=== PATIENT | male | born 1970 | race Caucasian/White ===

== ENCOUNTER → 2018-03-23 | Outpatient (CLI) | payer OTHER | END | disposition home or self-care (01) | LOC: C.LAB 12:29 | PROVIDERS: ATTEND Orthopaedic Surgery | DX: M79.644 Pain in right finger(s) (principal) ==

== ENCOUNTER → 2018-03-26 | Outpatient (CLI) | payer OTHER ==
--- NOTE | 2018-03-30 17:02 | CODING QUERY NO DIAGNOSIS ---
TREATMENT RENDERED WITHOUT A DIAGNOSIS To promote full compliance with coding requirements relating to patient care, physician participation is requested in all cases of braille coder uncertainty. Please assist us with providing a diagnosis/symptom for the test(s) below: A diagnosis/symptom was not documented on your Order. A valid diagnosis/symptom is required to bill all insurances. Please remember that we are unable to code a diagnosis of rule out, probable, possible, questionable, or suspected. Tests that require a diagnosis: DOS: 03/26/18 (Order also missing physician's signature) * Anaerobic culture of right middle finger DIAGNOSIS: Provider Signature: Date: Thank you Melony Sewell [facility] Information Management Once completed, please kindly fax back to [phone] For questions please call [phone]
== END | disposition home or self-care (01) ==
LOC: C.LABSPEC 16:45
PROVIDERS: ATTEND Orthopaedic Surgery
DX: L08.9 Local infection of the skin and subcutaneous tissue, unspecified (principal)

== ENCOUNTER 2024-10-19 14:29 | Inpatient (IN) ==
--- NOTE | 2024-10-19 14:42 | Emergency Department Note ---
Impression & Plan Sepsis, Pneumonia, Hypoxia, Hyponatremia ED Provider Note NAME: ADALGISA RAINES AGE: 54 SEX: M : 1970 ARRIVES VIA: Ambulance INFORMANT: Patient ED PROVIDER(S): Ernst Son DO CHIEF COMPLAINT: Shortness of breath, fevers and vomiting HPI: Patient is a 54-year-old male who presents to the ER for cough and congestion which started 11 days ago. He notes this past he started having fevers. He admits to worsening shortness of breath. He was seen at [facility] twice and was referred in here. He has not been started on any antibiotics. He was given Tylenol. Admits to headache. Does have shortness of breath. No belly pain but has episode of vomiting. No dysuria, urgency, or frequency. No other exacerbating or remitting factors. ADDITIONAL HISTORY OBTAINED: Per HPI Chronic Medical/Social Conditions Affecting Care: Per HPI PAST MEDICAL HISTORY:See Below PAST SURGICAL HISTORY:See Below FAMILY HISTORY:See Below SOCIAL HISTORY:See Below HOME MEDICATIONS:See Below ALLERGIES:See Below VITALS:See Below PHYSICAL EXAMINATION: GENERAL: Sitting up in bed, alert, ill-appearing, disheveled, diaphoretic, with a cough EYE EXAM: normal conjunctiva. PERRL and EOM's grossly intact. OROPHARYNX: no exudate, no erythema, lips, buccal mucosa, and tongue normal and mucous membranes are moist NECK: supple, no nuchal rigidity, no adenopathy, non-tender LUNGS: Clear to auscultation. Normal chest wall mechanics HEART: no murmurs, S1 normal and S2 normal ABDOMEN: abdomen soft, non-tender, normo-active bowel sounds, no masses, no rebound or guarding. UPPER EXTREMITIES: upper extremities are grossly normal. LOWER EXTREMITIES: No pitting edema. NEURO EXAM: Normal sensorium, cranial nerves II-XII grossly intact, normal speech, no gross weakness of arms, no gross weakness of legs. MEDICAL DECISION MAKING: Patient is a 54-year-old male who was brought in by EMS. He was found to be hypoxic febrile and tachycardic. IV was established blood work was obtained. Labs show leukocytosis of 15,000. Mild anemia 12. BMP with hyponatremia at 122. LFTs and bilirubin was unremarkable. Troponin was negative. Pro-Sung was elevated. Bio fire was positive for human Carlotta pneumo virus. Chest x-ray confirms pneumonia. He was given IV Rocephin and oral azithromycin. He was given 2 L of IV fluids. He did appear to be significant dehydrated. He was discussed with the hospitalist admitted for further workup. Remained on 2 L nasal cannula while in the ER. Consults/Care Managements Discussions: Per [facility] Triage Nursing notes reviewed. Limited review of prior medical records performed Vital Signs: reviewed and remarkable for febrile and tacky Differential diagnosis: Differential diagnosis includes etiologies such as sepsis, UTI, pneumonia, metabolic, electrolyte abnormalities, cardiac sources, intracerebral event, toxicologic, neurological, as well as others were entertained. ER treatment provided: See below Diagnostics interpreted by me include EKG and cardiac monitoring as listed below: -Cardiac Monitoring: An order was placed for continuous cardiac monitoring. The monitor shows a rate of 98 with sinus rhythm. -ECG: Sinus rhythm rate of 98 Normal axis No PVCs QTc 464 -Laboratory studies:Interpreted by me as stated above in MDM and shown below. Imaging studies: Xrays: As interpreted by me: Portable AP upright 1 view of the chest shows left lower lobe infiltrate CTs show: none Procedures:none Critical Care: I have personally spent 32 minutes of critical care time in the direct management of this patient. This includes bedside care, interpretation of diagnostic studies, and testing, discussion with consultants, patient, and family members, and other required patient management activities. This 32 minutes is in excess of all separately billable procedures. Past Med/Surg History Problem List (Updated 10/19/24 @ 21:35 by Ernst Son DO) Hypoxia (Acute) Pulmonary mass Type 2 diabetes mellitus Hypertension Hypokalemia Hyponatremia (Acute) Pneumonia (Acute) Sepsis (Acute) Social History Smoking Status: Never smoker Hx Alcohol Use: No Hx Substance Use: No Preferred Language: Guyanese Communication Ability: Effective Jail Keeper Required: No Beliefs That Will Affect Care: None Current Living Situation: Alone Other Information That Helps Us Care for You: No Feels Safe at Home: Yes Safety Concerns: Feels Safe At This Time Assistive Devices: Contacts Allergies Allergies Allergy/AdvReac Type Severity Reaction Status Date / Time No Known Allergies Allergy Unverified 10/19/24 17:37 Home Meds Home Medications Medication Instructions Recorded Confirmed atorvastatin 20 mg tablet 20 mg PO HS 10/19/24 10/19/24 dulaglutide 0.75 mg/0.5 mL 0.75 mg subcut WK 10/19/24 10/19/24 subcutaneous pen injector (Trulicity) glipizide 10 mg tablet, extended 10 mg PO QAM 10/19/24 10/19/24 release 24 hr ibuprofen 200 mg tablet 400 mg PO Q6H PRN Pain 10/19/24 10/19/24 lisinopril 40 mg tablet 40 mg PO QAM 10/19/24 10/19/24 metformin 500 mg tablet,extended 1,000 mg PO QAM 10/19/24 10/19/24 release 24 hr multivitamin 1 tab PO QAM 10/19/24 10/19/24 venlafaxine 150 mg 150 mg PO HS 10/19/24 10/19/24 capsule,extended release 24 hr Results & Data (ED) Vital Signs Vital Signs - 24 hr 10/19/24 14:39 10/19/24 14:51 10/19/24 14:57 Temperature 38.1 C H Temperature Source Oral Pulse Rate 99 H 94 H Pulse Rate [Apical] 94 H Pulse Rate from SpO2 Sensor Pulse Rhythm [Apical] Pulse Strength [Apical] Respiratory Rate 18 21 Respiratory Effort / Characteristics Non-Labored Spontaneous Respiratory Depth Normal Respiratory Pattern Blood Pressure 161/94 H Blood Pressure [Right Arm] 161/94 H Blood Pressure Mean 116 Blood Pressure Mean [Right Arm] 116 Pulse Oximetry 93 91 Oxygen Delivery Method Room Air Room Air Oxygen Flow Rate Sepsis Recent Fever Within 48 Hours Yes Sepsis New/Unexplained Change in Mental Status N/A Sepsis Action Taken by Nursing No Action Required 10/19/24 14:57 10/19/24 15:00 10/19/24 15:36 Temperature 37.3 C Temperature Source Oral Pulse Rate 93 H Pulse Rate [Apical] 89 Pulse Rate from SpO2 Sensor Pulse Rhythm [Apical] Regular Pulse Strength [Apical] Normal Respiratory Rate 21 16 Respiratory Effort / Characteristics Non-Labored Spontaneous Respiratory Depth Normal Respiratory Pattern Regular Blood Pressure Blood Pressure [Right Arm] 140/69 Blood Pressure Mean Blood Pressure Mean [Right Arm] 92 Pulse Oximetry 90 89 L 92 Oxygen Delivery Method Room Air Room Air Room Air Oxygen Flow Rate 0 Sepsis Recent Fever Within 48 Hours Sepsis New/Unexplained Change in Mental Status Sepsis Action Taken by Nursing 10/19/24 15:36 10/19/24 15:37 10/19/24 16:15 Temperature Temperature Source Pulse Rate 86 86 Pulse Rate [Apical] Pulse Rate from SpO2 Sensor 89 Pulse Rhythm [Apical] Pulse Strength [Apical] Respiratory Rate 24 20 Respiratory Effort / Characteristics Respiratory Depth Respiratory Pattern Blood Pressure 140/69 129/70 Blood Pressure [Right Arm] Blood Pressure Mean 98 89 Blood Pressure Mean [Right Arm] Pulse Oximetry 88 L 95 97 Oxygen Delivery Method Nasal Cannula Nasal Cannula Oxygen Flow Rate 2 2 Sepsis Recent Fever Within 48 Hours Sepsis New/Unexplained Change in Mental Status Sepsis Action Taken by Nursing Laboratory Data 10/19/24 14:45 10/19/24 17:18 Lab Results 10/19/24 10/19/24 10/19/24 Range/Units 14:45 15:10 15:44 WBC 15.77 H (4.8-10.8) K/ul RBC 4.15 L (4.70-6.10) M/uL Hgb 12.2 L (14.0-18.0) g/dl Hct 34.9 L (42.0-52.0) % MCV 84.1 (80.0-100.0) fL MCH 29.4 (25.0-34.0) pg MCHC 35.0 (32.0-36.0) g/dL RDW Std Deviation 39.4 (36.4-46.3) fL RDW Coeff of Trini 12.9 (11.5-14.5) % Plt Count 228 (130-400) K/uL MPV 9.1 L (9.4-12.4) fL Immature Gran % (Auto) 0.8 % Neut % (Auto) 86.8 % Lymph % (Auto) 5.5 % [place] % (Auto) 6.7 % Eos % (Auto) 0.0 % Baso % (Auto) 0.2 % Neut # (Auto) 13.70 H (1.40-6.50) K/uL Lymph # (Auto) 0.86 L (1.20-3.40) K/uL [place] # (Auto) 1.06 H (0.11-0.59) K/uL Eos # (Auto) 0.00 (0.00-0.50) K/uL Baso # (Auto) 0.03 (0.00-0.20) K/uL Immature Gran # (Auto) 0.12 (0.01-0.20) K/uL Sodium 122 L (136-145) mmol/L Potassium 3.3 L (3.5-5.1) mmol/L Chloride 89 L (98-107) mmol/L Carbon Dioxide 23 (21-32) mmol/L Anion Gap 10 (3-11) BUN 12 (6-23) mg/dl Creatinine 0.77 (0.6-1.4) mg/dl Est Cr Clr Drug Dosing 142.8 ml/min eGFR 105.07 BUN/Creatinine Ratio 15.6 (10-20) Glucose 195 H (70-99(Fasting)) mg/dl Lactate 1.3 (0.4-2.0) mmol/L Calcium 8.6 (8.6-10.3) mg/dl Total Bilirubin 1.2 H (0.2-1.0) mg/dl AST 18 (13-39) U/L ALT 13 (7-52) U/L Alkaline Phosphatase 96 (34-104) U/L Troponin I High Sens 11.5 (0-20) pg/ml Total Protein 7.8 (6.0-8.3) gm/dl Albumin 3.6 (3.4-5.0) gm/dl Globulin 4.2 H (2.5-4.0) gm/dl Albumin/Globulin Ratio 0.9 (0.9-2) Lipase 21 (11-82) U/L Procalcitonin 0.70 H (0-0.5) ng/ml Adenovirus (PCR) Not Detected (NotDetected) B. pertussis DNA (PCR) Not Detected (NotDetected) B.parapertussis DNA PCR Not Detected (NotDetected) C. pneumoniae DNA (PCR) Not Detected (NotDetected) Coronavirus OC43 (PCR) Not Detected (NotDetected) Coronavirus HKU1 (PCR) Not Detected (NotDetected) Coronavirus 229E (PCR) Not Detected (NotDetected) SARS-CoV-2 (PCR) Not Detected (NotDetected) Coronavirus NL63 (PCR) Not Detected (NotDetected) Human Metapneumovir PCR DETECTED A (NotDetected) Influenza Type A (PCR) Not Detected (NotDetected) Influenza Type B (PCR) Not Detected (NotDetected) M. pneumoniae (PCR) Not Detected (NotDetected) Parainfluenza 1 (PCR) Not Detected (NotDetected) Parainfluenza 2 (PCR) Not Detected (NotDetected) Parainfluenza 3 (PCR) Not Detected (NotDetected) Parainfluenza 4 (PCR) Not Detected (NotDetected) RSV (PCR) Not Detected (NotDetected) Entero/Rhino (PCR) Not Detected (NotDetected) Administered Medications Atorvastatin Calcium (Atorvastatin 20 Mg Tab) 20 mg PO HS QUYEN Stop: 11/18/24 20:59 Last Admin: 10/19/24 20:10 Dose: 20 mg Documented By: LMP Enoxaparin Sodium (Enoxaparin Inj 40 Mg/0.4 Ml Syr) 40 mg SQ Q24H QUYEN Stop: 11/18/24 18:59 Last Admin: 10/19/24 20:11 Dose: Not Given Documented By: RYLEY Insulin Aspart (Insulin Aspart Per Unit Charge) 0 units SC ACHS QUYEN Stop: 11/18/24 18:44 Last Admin: 10/19/24 20:50 Dose: 3 units Documented By: RYLEY Co-signed By: KARTHIK Admin: 10/19/24 19:20 Dose: Not Given Documented By: MP Co-signed By: RYLEY Magnesium Oxide (Magnesium Oxide 400 Mg Tab) 400 mg PO QAM QUYEN Stop: 11/18/24 19:14 Last Admin: 10/19/24 20:10 Dose: 400 mg Documented By: RYLEY Venlafaxine HCl (Venlafaxine Hcl Xr 150 Mg Capxr) 150 mg PO HS QUYEN Stop: 11/18/24 20:59 Last Admin: 10/19/24 20:10 Dose: 150 mg Documented By: LMP Discontinued Medications Azithromycin (Azithromycin 250 Mg Tab) 500 mg PO NOW ONE Stop: 10/19/24 14:39 Last Admin: 10/19/24 15:45 Dose: 500 mg Documented By: PRACHI Sodium Chloride (Nss) 1,000 mls @ 999 mls/hr IV .Q1H1M QUYEN Stop: 10/19/24 16:45 Last Infusion: 10/19/24 19:57 Dose: Infused Documented By: Admin: 10/19/24 17:04 Dose: 999 mls/hr Documented By: [facility] Infusion: 10/19/24 16:51 Dose: Infused Documented By: [facility] Admin: 10/19/24 15:45 Dose: 999 mls/hr Documented By: [facility] Ceftriaxone Sodium (Rocephin) 2,000 mg in 50 mls @ 100 mls/hr IV NOW STA Stop: 10/19/24 15:07 Last Infusion: 10/19/24 16:37 Dose: Infused Documented By: [facility] Admin: 10/19/24 15:38 Dose: 100 mls/hr Documented By: [facility] Ioversol (Optiray 320 100ml) 90 ml IV ONCE ONE Stop: 10/19/24 18:06 Last Admin: 10/19/24 18:06 Dose: 90 ml Documented By: [place] Potassium Chloride (Potassium Chloride Crtab 20 Meq Tabcr) 40 meq PO Q2H QUYEN Stop: 10/19/24 20:44 Last Admin: 10/19/24 20:10 Dose: 40 meq Documented By: [facility] Admin: 10/19/24 17:04 Dose: 40 meq Documented By: [facility] Imaging Data Radiologist's Impression: Chest X-Ray 10/19/24 14:34 XR chest 1V portable HISTORY: 54 years-old Male Chest pain, nonspecific COMPARISON: None TECHNIQUE: AP view of the chest FINDINGS: Cardiac silhouette is enlarged. Sigmoid thoracolumbar scoliosis with spinal fusion shar. No pneumothorax, pleural effusion or overt pulmonary edema. There is an ill-defined 9 cm retrocardiac masslike opacity. IMPRESSION: Ill-defined 9 mm retrocardiac masslike opacity. Differential considerations include pneumonia versus bronchogenic malignancy. Correlation with CT of the chest recommended. ACT 112: Negative or not required by law. The above report was generated using voice recognition software. It may contain grammatical, syntax or spelling errors. Electronically signed by: Silvestre Childers M.D. 10/19/2024 3:07 PM Discharge Plan Visit Data Chief Complaint: Shortness of Breath/Dyspnea ED Provider: Ernst Son Discharge Problem: Sepsis, Pneumonia, Hypoxia, Hyponatremia Patient Disposition: Admitted As Inpatient Discharge Instructions Interventions: ED Discharge Assessment Last Done: 10/19/24 17:45 Discharge Problem: Sepsis Qualifiers: Sepsis type: sepsis due to unspecified organism Sepsis acute organ dysfunction status: unspecified Qualified Code(s): A41.9 - Sepsis, unspecified organism
[2024-10-19 15:02] LABS: Basophils # (auto) 0.03 K/uL (0.00-0.20); Basophils % (auto) 0.2 %; Hematocrit (blood only) 34.9 % (42.0-52.0); Hemoglobin 12.2 g/dl (14.0-18.0); Immature Granulocytes # (auto) 0.12 K/uL (0.01-0.20); Immature Granulocytes % (auto) 0.8 %; Lymphocytes # (auto) 0.86 K/uL (1.20-3.40); Lymphocytes % (auto) 5.5 %; Mean Corpuscular Hemoglobin 29.4 pg (25.0-34.0); Mean Corpuscular Volume 84.1 fL (80.0-100.0); Mean Platelet Volume 9.1 fL (9.4-12.4); Monocytes # (auto) 1.06 K/uL (0.11-0.59); Monocytes % (auto) 6.7 %; Neutrophils % (auto) 86.8 %; Platelet Count 228 K/uL (130-400); RDW Coefficient of Variation 12.9 % (11.5-14.5); RDW Standard Deviation 39.4 fL (36.4-46.3); Red Blood Count 4.15 M/uL (4.70-6.10); White Blood Count 15.77 K/ul (4.8-10.8)
--- NOTE | 2024-10-19 15:09 | XRay Report ---
XR chest 1V portable HISTORY: 54 years-old Male Chest pain, nonspecific COMPARISON: None TECHNIQUE: AP view of the chest FINDINGS: Cardiac silhouette is enlarged. Sigmoid thoracolumbar scoliosis with spinal fusion shar. No pneumothor ax, pleural effusion or overt pulmonary edema. There is an ill-defined 9 cm retrocardiac masslike opa city. IMPRESSION: Ill-defined 9 mm retrocardiac masslike opacity. Differential considerations include pneum onia versus bronchogenic malignancy. Correlation with CT of the chest recommended. ACT 112: Negative or not required by law. The above report was generated using voice recognition software. It may contain grammatical, syntax o r spelling errors. Electronically signed by: Silvestre Childers M.D. 10/19/2024 3:07 PM
[2024-10-19 15:34] LABS: Albumin Globulin Ratio 0.9 (0.9-2); Albumin Level 3.6 gm/dl (3.4-5.0); BUN Creatinine Ratio 15.6 (10-20); Bilirubin,Total 1.2 mg/dl (0.2-1.0); Calcium 8.6 mg/dl (8.6-10.3); Creatinine Clr Calc Pharmacy 142.8 ml/min; Globulin 4.2 gm/dl (2.5-4.0); Potassium 3.3 mmol/L (3.5-5.1); Total Protein 7.8 gm/dl (6.0-8.3); Troponin I High Sensitivity 11.5 pg/ml (0-20)
[2024-10-19] MEDS: cefTRIAXone SODIUM 2,000 MG/50 ML BAG IV STA (15:38)
--- NOTE | 2024-10-19 15:42 | History & Physical Report ---
Date of Service October 19, 2024 Assessment & Plan (1) Sepsis: Plan: Source: pneumonia WBC 15.77, tachycardic 99, febrile (38.1C) lactate negative, 1.3 Procal 0.70 Fluids: - 2L NSS in ER - Sepsis fluid calculation for ideal body weight = 2754.30 Will defer additional fluid resuscitation given hyponatremia and critical IV shortage - defer trending lactate given 1.3 - Biofire pending - chest CT ordered - Continue Rocephin and Azithromycin - Blood cultures ordered (2) Pneumonia: Plan: history of cough, dyspnea on exertion, fever, fatigue x 1.5 weeks CXR showing ill-defined 9 mm retrocardiac masslike opacity pneumonia versus bronchogenic malignancy hypoxia - 89% RA -> NC 2L incentive spirometry CT chest with contrast ordered sepsis workup as above (3) Hypoxia: Plan: secondary to pneumonia On 2L NC on admission wean oxygen as tolerated treatment for above (4) Hyponatremia: Plan: Patient with NA of 122 -> Calculated corrected 124 with mild hyperglycemia likely secondary to recent poor oral intake/ dehydration; although SIADH from pneumonia in differential - asymptomatic - hypovolemic; clinically - Serum osmol, Urine NA, Urine Osmol pending - repeat BMP after IV fluid resuscitation from ER - Trend BMP Q4 hours overnight (5) Hypokalemia: Plan: 3.3 on admission -> 80 Meq PO ordered trend BMP and Mg Hypomagnesia - 1.7 -> start daily supplement (6) Hypertension: Plan: Stable, not hypotensive given sepsis - continue home BP medications - lisinopril - monitor with fluid bolus as above (7) Type 2 diabetes mellitus: Plan: Controlled on metformin, glipizide, Trulicity at home; held - No recent A1c on file although followed with PCP - SSI with target BSG range 110-140mg/dL, CF 25, carb ratio 12 - T2DM diet - BSG ACHS if eating, q6h if npo (8) Pulmonary mass: Plan: CXR on admission showed ill-defined 9 mm retrocardiac masslike opacity differential includes pneumonia vs bronchogenic malignancy patient does have 10-year tobacco history, chews, but non-smoker - CT chest ordered Plan Chronic stable diagnoses: HLD - continue atorvastatin depression/anxiet - continue venlafaxine VTE ppx: Lovenox 40mg Q24h Diet: T2DM diet Code status: DNR/DNI Dispo: PCU/tele given sepsis Admission and Anticipated Discharge Date Admission Date: 10/19/24 History of Present Illness Chief Complaint: dyspnea Primary Care Provider: Hanane Soto Patient is a 54-year-old male with past medical history of hypertension, hyperlipidemia, type 2 diabetes, BPH, depression/anxiety. He presents today with an ongoing cough that has been present for 1.5 weeks, nonproductive. He stated his entire body hurts when he coughs. He also has dyspnea on exertion along with a subjective fever and chills. He had 1 episode of vomiting this morning due to nausea. He has not eaten anything since yesterday just because of generalized weakness and fatigue. He went to, they obtained a CXR which showed LLL pneumonia; he has not started any outpatient antibiotics yet. He presented to the ED today with hypoxia, 98% on room air. He endorses mild dizziness. Endorses chest pain and abdominal pain, relates it to musculoskeletal pain from coughing. Patient denies sputum production, diarrhea, constipation, dysuria, hematuria, edema, numbness, tingling. He has a 10-year history of drinking, no smoking history. He lives at home by himself, support system. He has DNR/DNI status. He took his home medications this morning. Patient reassessed at 1918 - perfusing well, on RA. Fatigued, denies dyspnea. No need for repeat lactate at this time given original was <2. Allergies Allergy/AdvReac Type Severity Reaction Status Date / Time No Known Allergies Allergy Unverified 10/19/24 17:37 Home Medications Medication Instructions Recorded Confirmed Type atorvastatin 20 mg tablet 20 mg PO HS 10/19/24 10/19/24 History dulaglutide 0.75 mg/0.5 mL 0.75 mg subcut WK 10/19/24 10/19/24 History subcutaneous pen injector (Trulicity) glipizide 10 mg tablet, extended 10 mg PO QAM 10/19/24 10/19/24 History release 24 hr ibuprofen 200 mg tablet 400 mg PO Q6H PRN Pain 10/19/24 10/19/24 History lisinopril 40 mg tablet 40 mg PO QAM 10/19/24 10/19/24 History metformin 500 mg tablet,extended 1,000 mg PO QAM 10/19/24 10/19/24 History release 24 hr multivitamin 1 tab PO QAM 10/19/24 10/19/24 History venlafaxine 150 mg 150 mg PO HS 10/19/24 10/19/24 History capsule,extended release 24 hr Past Med/Surg History Problem List (Updated 10/19/24 @ 16:16 by Sada Salas PA-C) Hypoxia Pulmonary mass Type 2 diabetes mellitus Hypertension Hypokalemia Hyponatremia Pneumonia Sepsis Social History Smoking Status: Never smoker Hx Alcohol Use: No Hx Substance Use: No Preferred Language: Cymraes Communication Ability: Effective Finance Clerk Required: No Beliefs That Will Affect Care: None Current Living Situation: Alone Feels Safe at Home: Yes Assistive Devices: Contacts Review of Systems Review of Systems: see HPI Physical Exam Physical Exam: The patient is awake, alert and oriented 3, well developed and well nourished, normocephalic and atraumatic, in no acute distress. Non-toxic appearing. HEENT- EOMI, mucous membranes dry. Hearing grossly intact. Heart-normal S1 and S2. No murmurs, rubs or gallops. Lungs-clear bilaterally, no respiratory distress, no accessory muscle use. 2L via Nasal cannula. Abdomen-normal bowel sounds and soft. No ascites noted. Non-tender. Scar to RUQ, patient stated from childhood. Extremities- no clubbing, cyanosis, or edema. Rheumatologic-normal range of motion. Psychiatric-normal affect. Results & Data Results & Data Vital Signs (Past 12 Hours) Vital Signs Temp Pulse Pulse Resp BP BP Pulse Ox 10/19/24 15:36 37.3 C 89 16 140/69 92 10/19/24 15:00 89 L 10/19/24 14:57 93 H 21 90 10/19/24 14:57 94 H 21 161/94 H 91 10/19/24 14:51 94 H 10/19/24 14:39 38.1 C H 99 H 18 161/94 H 93 O2 Del Method O2 Flow Rate 10/19/24 15:36 Room Air 10/19/24 15:00 Room Air 0 10/19/24 14:57 Room Air 10/19/24 14:57 Room Air 10/19/24 14:51 10/19/24 14:39 Room Air Code Status & VTE Plan Code Status DNR/DNI VTE Prophylaxis Plan VTE Prophylaxis will be ordered: Yes Supervising Physician Co-Signing Physician Notes Patient seen and examined, chart reviewed, case discussed with Sada Salas PA-C and I agree with the assessment and plan as above except as otherwise noted Labs and images reviewed 54-year-old male with a past medical history of DM, anxiety/depression, hypertension who presents with suspected community-acquired pneumonia and to meet sepsis criteria due to leukocytosis and tachycardia. He is hyponatremic which is suspected to be from solute depletion due to poor p.o. intake for several days however differential does include SIADH. Additionally patient has a retrocardiac mass seen for which a CT has been ordered for further characterization 2L of crystalloid resuscitation given in the ER. 30 cc/kg IBW recommendations 2754 deferred as patient is normotensive, is no longer tachycardic, lactate is normal, and patient is seen during a period of critical IV fluid shortage. Orals encouraged and he is clinically improving on reassessment. Additionally he is hyponatremic and urine studies are pending so risk of SIADH with pneumonia is present, although clinically patient does appear contracted on initial assessment. Rocephin/Azithromycin continued. Retrocardiac opacity is seen, CT chest is pending for further evaluation. Agree w/ management above PG Care Time/CCT Total # of Minutes Spent Total Time Spent with Patient: Total time spent is greater than 50% in coordination of care (as documented) at patient's floor/unit and/or counseling patient: Coding Level of Care Code 84893 INT INP/OBS CARE 3/75MIN Diagnoses Sepsis A41.9 Pneumonia J18.9 Hypoxia R09.02 Hyponatremia E87.1 Hypokalemia E87.6 Hypertension I10 Type 2 diabetes mellitus E11.9 Pulmonary mass R91.8
[2024-10-19] MEDS: AZITHROMYCIN 250 MG TAB PO ONE (15:45)
[2024-10-19] MEDS: SODIUM CHLORIDE 0.9% 1,000 ML IV SCH (15:45)
[2024-10-19 16:50] LABS: Adenovirus PCR Not Detected (NotDetected); Bordetella parapertussis PCR Not Detected (NotDetected); Bordetella pertussis PCR Not Detected (NotDetected); Chlamydia pneumoniae PCR Not Detected (NotDetected); Coronavirus 229E PCR Not Detected (NotDetected); Coronavirus CoV-2 (COVID19)PCR Not Detected (NotDetected); Coronavirus HKU1 PCR Not Detected (NotDetected); Coronavirus NL63 PCR Not Detected (NotDetected); Coronavirus OC43PCR Not Detected (NotDetected); Human Metapneumovirus PCR DETECTED (NotDetected); Influenza A PCR Not Detected (NotDetected); Influenza B PCR Not Detected (NotDetected); Mycoplasma pneumoniae PCR Not Detected (NotDetected); Parainfluenza Virus 1 PCR Not Detected (NotDetected); Parainfluenza Virus 2 PCR Not Detected (NotDetected); Parainfluenza Virus 3 PCR Not Detected (NotDetected); Parainfluenza Virus 4 PCR Not Detected (NotDetected); Respiratory Syncytial VirusPCR Not Detected (NotDetected); Rhinovirus/Enterovirus PCR Not Detected (NotDetected)
[2024-10-19] MEDS: POTASSIUM CHLORIDE CRTAB 20 MEQ TABCR PO SCH (17:04)
[2024-10-19 17:59] LABS: Calcium 8.7 mg/dl (8.6-10.3); Potassium 3.6 mmol/L (3.5-5.1)
[2024-10-19 18:05] LABS: BUN Creatinine Ratio 14.8 (10-20); Creatinine Clr Calc Pharmacy 135.7 ml/min
[2024-10-19] MEDS: OPTIRAY 320 100ml IV ONE (18:06)
[2024-10-19] MEDS ORDERED: ONDANSETRON INJ 2 MG/ML 2 ML VIAL IV PRN (18:26)
[2024-10-19] MEDS ORDERED: GLUCOSE 10 TAB/TUBE PO PRN (18:26)
[2024-10-19] MEDS ORDERED: DEXTROSE 50% 50 ML SYRINGE IV PRN (18:26)
[2024-10-19] MEDS ORDERED: GLUCOSE 40% GEL 15 GM TUBE PO PRN (18:26)
[2024-10-19] MEDS ORDERED: CARBOHYDRATES FOR HYPOGLYCEMIA PO PRN (18:26)
[2024-10-19] MEDS ORDERED: DOCUSATE SODIUM 100 MG CAP PO PRN (18:26)
[2024-10-19] MEDS ORDERED: GLUCAGON FOR INJ 1 MG VIAL SQ PRN (18:26)
--- NOTE | 2024-10-19 18:30 | CT Scan Report ---
HISTORY: Left lower lobe pneumonia. Shortness of breath. TECHNIQUE: Helical CT imaging of the chest was performed following uneventful administration of 90 cc of Optiray 320 IV contrast. Images are presented in axial, sagittal, and coronal reformats. COMPARISON: None FINDINGS: Multifocal bilateral airspace opacity consistent with multifocal pneumonia. This is most pronounced involving the left upper lobe with areas also present within the right upper lobe and right lower lobe. No pneumothorax or significant pleural effusion. The central tracheobronchial tree is patent. Normal heart size. Coronary artery calcifications are present. No pericardial effusion. Mildly enlarged mediastinal and hilar lymph nodes are nonspecific, but likely reactive. Small hiatal hernia. Thoracic esophagus is unremarkable. Thyroid gland is unremarkable. No enlarged axillary or subpectoral lymph nodes. The soft tissues of the chest wall are unremarkable. Hepatic steatosis. The included upper abdomen is otherwise unremarkable. Veronica shar is noted in the thoracic spine. Severe dextroscoliosis. No acute osseous abnormality. IMPRESSION: Multifocal bilateral pneumonia, which is pronounced involving the left lower lobe. Follow-up chest CT is recommended in 1 to 2 months to ensure complete resolution. Nonspecific mild mediastinal and hilar lymphadenopathy is likely reactive. Coronary artery calcifications. Hepatic steatosis. Electronically signed by Jeanmarie Chavira 10-19-2024 6:30 PM
[2024-10-19] MEDS: INSULIN ASPART PER UNIT CHARGE SC SCH (19:20)
[2024-10-19] MEDS: ATORVASTATIN 20 MG TAB PO SCH (20:10)
[2024-10-19] MEDS: VENLAFAXINE HCL XR 150 MG CAPXR PO SCH (20:10)
[2024-10-19] MEDS: MAGNESIUM OXIDE 400 MG TAB PO SCH (20:10)
[2024-10-19] MEDS: ENOXAPARIN INJ 40 MG/0.4 ML SYR SQ SCH (20:11)
--- NOTE | 2024-10-19 21:25 | Electrocardiogram Report ---
Test Reason : Blood Pressure : */* mmHG Vent. Rate : 98 BPM Atrial Rate : 98 BPM P-R Int : 202 ms QRS Dur : 102 ms QT Int : 364 ms P-R-T Axes : 62 22 61 degrees QTcB Int : 464 ms Normal sinus rhythm Possible Left atrial enlargement Borderline ECG No previous ECGs available Confirmed by Justen Curtis ([id number]) on 10/19/2024 9:25:06 PM Referred By: Confirmed By: Justen Curtis
[2024-10-19 21:38] LABS: BUN Creatinine Ratio 14.8 (10-20); Calcium 8.9 mg/dl (8.6-10.3); Creatinine Clr Calc Pharmacy 124.7 ml/min; Potassium 3.9 mmol/L (3.5-5.1)
[2024-10-19] MEDS: ACETAMINOPHEN 325 MG TAB PO PRN (23:10)
[2024-10-19] MEDS: NICOTINE 21 MG/24 HR TDSY TD SCH (23:40)
[2024-10-20 01:15] LABS: BUN Creatinine Ratio 16.3 (10-20); Calcium 8.8 mg/dl (8.6-10.3); Creatinine Clr Calc Pharmacy 127.6 ml/min; Potassium 3.7 mmol/L (3.5-5.1)
[2024-10-20 04:30] LABS: A calco-baum cmplx NotReported Not Detected (NotDetected); Bact fragilis Not Reported Not Detected (NotDetected); Blood Culture Id Panel See PCR Comment (NotDetected); C auris Not Reported Not Detected (NotDetected); Calbicans Not Reported Not Detected (NotDetected); Candida glabrata Not Reported Not Detected (NotDetected); Candida krusei Not Reported Not Detected (NotDetected); Cneoformans/gatti Not Reported Not Detected (NotDetected); Cparapsilosis Not Reported Not Detected (NotDetected); E cloacae compx Not Reported Not Detected (NotDetected); Efaecalis Not Reported Not Detected (NotDetected); Efaecium Not Reported Not Detected (NotDetected); Enterobacterales Not Reported Not Detected (NotDetected); Escherichia coli Not Reported Not Detected (NotDetected); H influenzae Not Reported Not Detected (NotDetected); K aerogenes Not Reported Not Detected (NotDetected); Koxytoca Not Reported Not Detected (NotDetected); Kpneumoniae grp Not Reported Not Detected (NotDetected); Lmonocyt Not Reported Not Detected (NotDetected); N meningitidis Not Reported Not Detected (NotDetected); P aeruginosa Not Reported Not Detected (NotDetected); Proteus spp Not Reported Not Detected (NotDetected); Salmonella spp Not Reported Not Detected (NotDetected); Staph lugdunensis Not Reported Not Detected (NotDetected); Staph spp. Not Reported Not Detected (NotDetected); Staphaureus Not Reported Not Detected (NotDetected); Staphepi Not Reported Not Detected (NotDetected); Stenmaltophilia Not Reported Not Detected (NotDetected); Strep agal(GrpB) Not Reported Not Detected (NotDetected); Strep pneum Not Reported DETECTED (NotDetected); Strep pyog (GrpA) Not Reported Not Detected (NotDetected); Strep spp Not Reported DETECTED (NotDetected); Streptococcus spp DETECTED (NotDetected)
[2024-10-20 05:05] LABS: Streptococcus pneumoniae DETECTED (NotDetected)
[2024-10-20 08:07] LABS: Hematocrit (blood only) 37.3 % (42.0-52.0); Hemoglobin 12.4 g/dl (14.0-18.0); Mean Corpuscular Hemoglobin 28.8 pg (25.0-34.0); Mean Corpuscular Hgb Conc 33.2 g/dL (32.0-36.0); Mean Corpuscular Volume 86.7 fL (80.0-100.0); Mean Platelet Volume 9.5 fL (9.4-12.4); Platelet Count 231 K/uL (130-400); RDW Standard Deviation 40.7 fL (36.4-46.3); White Blood Count 11.96 K/ul (4.8-10.8)
[2024-10-20 08:29] LABS: BUN Creatinine Ratio 15.1 (10-20); Calcium 8.9 mg/dl (8.6-10.3); Creatinine Clr Calc Pharmacy 117.8 ml/min; Magnesium 2.1 mg/dl (1.7-2.4); Potassium 4.3 mmol/L (3.5-5.1)
[2024-10-20] MEDS ORDERED: PNEUMOCOCCAL VACCINE (PCV20) 20-VAL CONJ-DIP CRM/PF 0.5 ML SYR IM ONE (09:00)
[2024-10-20] MEDS ORDERED: NICOTINE 21 MG/24 HR TDSY TD SCH (09:00)
[2024-10-20] MEDS: AZITHROMYCIN 250 MG TAB PO SCH (09:18)
[2024-10-20] MEDS: lisinopril 40 MG TAB PO SCH (09:18)
--- NOTE | 2024-10-20 13:20 | Hospitalist Progress Note ---
Date of Service October 20, 2024 Assessment & Plan (1) Sepsis: Plan: with bacteremia source - pneumonia see below (2) Bacteremia: Plan: 2nd to strep pneumoniae all blood cx's from admission are positive echo ordered - r/o SBE continue rocephin 2gm IV daily will need 14 days of Rx in light of immunocompromised status - diabetic, had meningitis in his 20s, etc - will obtain blood cultures to ensure sterility fortunately he remains hemodynamically stable (3) Pneumonia: Plan: CT chest with b/l infiltrates some of the pneumonia could be 2nd human metapneumovirus some of the pneumonia likely 2nd to bacterial superinfection with strep cont rocephin cont azithromycin stable in room air today (4) Hypoxia: Plan: secondary to pneumonia o2 already weaned off (5) Hyponatremia: Plan: 2nd hypovolemia from poor PO intake prior to admission presenting Na 122 today's Na - 135 repeat BMP am for stability (6) Hypokalemia: Plan: replaced resolved (7) Hypertension: Plan: stable, controlled cont LORRAINE (8) Type 2 diabetes mellitus: Plan: Typically on metformin, glipizide, Trulicity at home; all Currently on novolog SSI Check a1c in am Add basal if needed (9) Pulmonary mass: Plan: CXR on admission showed ill-defined 9 mm retro[address]iac masslike opacity CT chest w/o discrete mass --> the CXR finding could be due to the dense EBEN consolidation regardless will need repeat CT in 2-3 months (10) Bronchitis due to human metapneumovirus (hMPV): Plan: extensive wheezing on exam today he does report history of asthma as child/teenager consider systemic steroids for now will add pulmicort nebs BID also add brovana BID incentive brock add flutter add tessalon add robitussin AC prn droplet precautions Plan Chronic stable diagnoses: HLD - continue atorvastatin depression/anxiet - continue venlafaxine DVT proph - Lovenox 40mg Q24h Admission and Anticipated Discharge Date Admission Date: October 19, 2024 Subjective tele wnl overnight reports ongoing cough, wheezing, congestion no dyspnea at rest but some dyspnea with exertion feels better overall vs yesterday a little more energy eating well reports h/o asthma as a child also reports meningitis in his 20s Review of Systems Review of Systems: gen - no fevers or chills cv - no chest pain pulm - cough is dry and hacking GI - no abd pain or N/V Physical Exam Physical Exam: gen - lying comfortably in bed, NAD, coughing HENT - congested; MMM neck - no JVD heart - RRR, s1 s2, no murmur lungs - diffuse wheezing all lung segments; crackles left lung; airation fair; no increased work of breathing abd - soft NT ND BS+ ext - no edema, pulses 2+b/l psych - a/o x 3 Results & Data Results & Data Vital Signs (Past 12 Hours) Vital Signs Temp Pulse Resp BP Pulse Ox O2 Del Method 10/20/24 11:00 36.7 C 85 16 138/90 96 Room Air 10/20/24 08:00 Room Air 10/20/24 08:00 37.1 C 10/20/24 07:33 94 H 20 136/83 95 Room Air 10/20/24 03:50 37.3 C 76 22 141/80 H 92 Room Air Laboratory Results Laboratory Results - last 24 hr 10/19/24 10/20/24 10/20/24 15:10 07:30 07:31 WBC 11.96 H RBC 4.30 L Hgb 12.4 L Hct 37.3 L MCV 86.7 MCH 28.8 MCHC 33.2 RDW Std Deviation 40.7 RDW Coeff of Trini 13.0 Plt Count 231 MPV 9.5 Sodium 135 L Potassium 4.3 Chloride 100 Carbon Dioxide 30 Anion Gap 5 BUN 13 Creatinine 0.86 Est Cr Clr Drug Dosing 117.8 eGFR 101.62 BUN/Creatinine Ratio 15.1 Glucose 90 POC Glucose 94 Calcium 8.9 Magnesium 2.1 Streptococcus sp PCR DETECTED A Strep pneumoniae (PCR) DETECTED A Bld Cult ID Panel PCR See PCR Comment 10/20/24 10/20/24 10/20/24 11:43 16:34 20:31 WBC RBC Hgb Hct MCV MCH MCHC RDW Std Deviation RDW Coeff of Trini Plt Count MPV Sodium Potassium Chloride Carbon Dioxide Anion Gap BUN Creatinine Est Cr Clr Drug Dosing eGFR BUN/Creatinine Ratio Glucose POC Glucose 97 178 H 165 H Calcium Magnesium Streptococcus sp PCR Strep pneumoniae (PCR) Bld Cult ID Panel PCR Diagnostic Findings Microbiology 10/19/24 14:45 Blood Aerobic Blood Culture - Preliminary Streptococcus pneumoniae 10/19/24 14:45 Blood Anaerobic Blood Culture - Preliminary Gram positive cocci in chains 10/19/24 15:10 Blood Aerobic Blood Culture - Preliminary Gram positive cocci in chains 10/19/24 15:10 Blood Anaerobic Blood Culture - Preliminary Gram positive cocci PG Care Time/CCT Total # of Minutes Spent Total Time Spent with Patient: Total time spent is greater than 50% in coordination of care (as documented) at patient's floor/unit and/or counseling patient: Coding Level of Care Code 77560 SUB INP/OBS CARE 3/50MIN Diagnoses Sepsis A41.9 Sepsis acute organ dysfunction status: unspecified Sepsis type: sepsis due to unspecified organism Bacteremia R78.81 Pneumonia J18.9 Hypoxia R09.02 Hyponatremia E87.1 Hypokalemia E87.6 Hypertension I10 Type 2 diabetes mellitus E11.9 Pulmonary mass R91.8 Bronchitis due to human metapneumovirus (hMPV) J40; B97.81 (1) Sepsis Sepsis acute organ dysfunction status: unspecified Sepsis type: sepsis due to unspecified organism Qualified Code(s): A41.9 - Sepsis, unspecified organism
[2024-10-20] MEDS: FORMOTEROL 20 MCG/2 ML VIAL INH SCH (13:40)
[2024-10-20] MEDS: BUDESONIDE 0.5 MG/2 ML VIAL (PULMICORT) NEB SCH (13:40)
[2024-10-20] MEDS: cefTRIAXone SODIUM 2,000 MG/50 ML BAG IV SCH (14:16)
[2024-10-20] MEDS: BENZONATATE 100 MG CAPSULE PO SCH (14:16)
--- NOTE | 2024-10-20 17:35 | XCELERA ---
[id number]
[2024-10-20] MEDS: guaiFENesin/CODEINE 100MG/10MG 5ML UDC PO PRN (20:41)
[2024-10-20] MEDS: COUGH DROP (SUGAR FREE) LOZ 24 LOZ/1 BOX BUCCAL STA (20:41)
[2024-10-21 07:06] LABS: Hematocrit (blood only) 39.4 % (42.0-52.0); Hemoglobin 13.2 g/dl (14.0-18.0); Mean Corpuscular Hgb Conc 33.5 g/dL (32.0-36.0); Mean Corpuscular Volume 86.6 fL (80.0-100.0); Mean Platelet Volume 9.4 fL (9.4-12.4); Platelet Count 262 K/uL (130-400); RDW Coefficient of Variation 12.8 % (11.5-14.5); RDW Standard Deviation 40.6 fL (36.4-46.3); Red Blood Count 4.55 M/uL (4.70-6.10); White Blood Count 5.98 K/ul (4.8-10.8)
[2024-10-21 07:30] LABS: BUN Creatinine Ratio 16.7 (10-20); Calcium 9.1 mg/dl (8.6-10.3); Creatinine Clr Calc Pharmacy 112.5 ml/min; Potassium 4.6 mmol/L (3.5-5.1)
[2024-10-21 08:12] LABS: Estimated Average Glucose 180 mg/dl; Hemoglobin A1C 7.9 % (4.5-5.6)
[2024-10-21] MEDS: LANTUS PER UNIT CHARGE SQ SCH (11:58)
--- NOTE | 2024-10-21 15:21 | Infectious Disease Consult ---
Date of Consultation October 21, 2024 Assessment & Plan (1) Bronchitis due to human metapneumovirus (hMPV): (2) Bacteremia: (3) Pneumonia: (4) Streptococcus pneumoniae infection: Plan ID Problem List: 1. Strep pneumoniae pneumonia c/b bacteremia 2. Human metapneumovirus infection 3. History of asthma as child Impression: Lam Banda is a 54-year-old with history of T2DM, BPH, HTN, history of spinal surgery with hardware at age 14, who presents to [facility] on 10/19/24 with 1.5 weeks of cough, shortness of breath, myalgias, and subjective fevers, found to have LLL pneumonia and Strep pneumoniae bacteremia. ID is consulted for Strep pneumoniae pneumonia c/b bacteremia. For the past 1.5 weeks, the patient has been experiencing cough, shortness of breath, myalgias, and subjective fever. He developed one episode of vomiting. He presents to [facility] on 10/19. He had an outpatient CXR showing LLL pna but had not yet been on abx. Upon presentation, VS T37.1 HR 94 BP 141/84 SpO2 98% on RA. Labs showed WBC 15.77 Hgb 12.2 Cr 0.88 AST 18 ALT 13 alk phos 96 tbili 1.2. 10/19 CT chest with bilateral multifocal pna especially in LLL. He was started on ceftriaxone and azithromycin. On 10/21, afebrile, WBC 5.98. SpO2 100% on RA. At the time of evaluation, he reports having more cough and congestion but overall feeling stable/improved from prior. He has a history of hardware down his entire spine from when he was 14 years old due to spine arthritis. He reports no new issues. He has not required any oxygen. He has been receiving inhalers while inpatient. However, he does feel like he is still having coughing and wheezing. He reports a history of asthma as a child and also an episode of meningitis in his 20s. Discussion Pt with Strep pneumo bacteremia in the setting of multifocal pneumonia. Furthermore, his RVP was + human metapneumovirus so this may be a bacterial superinfection atop a preceding/concomitant respiratory viral infection. Pt is not hypoxemic and has been hemodynamically stable. Appears to be bacteremic pna as a source; no s/sx of [employer] symptoms or metastatic infection. Strep pneumo is an uncommon (but not unheard of) cause of IE; TTE without valvular abnormalities. Would continue to monitor closely for any new/worsening focal complaints (e.g., joint pain, back pain) with low threshold to image/evaluate as possible metastatic infection. Pt with extensive spinal hardware; no back pain at this time. Can follow repeat BCx from 10/20 to ensure clearance. Can continue ceftriaxone while inpatient and change to cefpodoxime (or amoxicillin if confirmed S-penicillin) to complete a 10-day course. Recommendations: - Continue ceftriaxone 2g IV q24h, continue while inpatient - If improving and will be discharging, can change to cefpodoxime 400 mg PO BID to complete a 10-day course for bacteremic pneumonia (10/1910/29/24). If sensitive to penicillin, may instead use amoxicillin 1g PO TID. - Management of possible asthma exacerbation and bronchitis as you are - F/u 10/19 Strep pneumoniae sensis to ceftriaxone and penicillin - F/u 10/20 BCx to ensure clearance - Suggest repeat CT chest in 1-2 months to assess for resolution as per radiology Thank you for letting ID participate in the care of this patient. ID will sign off at this time. If questions, please contact the [facility] call center at [phone]. Beckie Baxter MD, S Infectious Diseases [facility] direct line: [phone] Consultation Information Consultation was provided via telemedicine using two-way real-time interactive telecommunication between the patient and the telemedicine provider. For the duration of the visit, the provider was performing the assessment from a different facility than the patient. This includesuse of bluetooth stethoscope forauscultationperformed by the telepresenter that the telemedicine provider can hear if described in the physical exam. Recreation Establishment Manager contact information: Please call [facility] Call Center [phone]. (Phone Number For Physician Use Only) After establishing a telemedicine visit, patient was: Patient was verified with two unique identifiers, Patient/authorized rep acknowledged consent and understanding and Gave permission to continue telehealth session Time Spent with Patient: Initial => 75 min History of Present Illness Reason for Consultation: Strep pneumoniae pneumonia c/b bacteremia Attending Physician: Nazario Thayer MD History of Present Illness Lam Banda is a 54-year-old with history of T2DM, BPH, HTN, history of spinal surgery with hardware at age 14, who presents to [facility] on 10/19/24 with 1.5 weeks of cough, shortness of breath, myalgias, and subjective fevers, found to have LLL pneumonia and Strep pneumoniae bacteremia. ID is consulted for Strep pneumoniae pneumonia c/b bacteremia. For the past 1.5 weeks, the patient has been experiencing cough, shortness of breath, myalgias, and subjective fever. He developed one episode of vomiting. He presents to [facility] on 10/19. He had an outpatient CXR showing LLL pna but had not yet been on abx. Upon presentation, VS T37.1 HR 94 BP 141/84 SpO2 98% on RA. Labs showed WBC 15.77 Hgb 12.2 Cr 0.88 AST 18 ALT 13 alk phos 96 tbili 1.2. 10/19 CT chest with bilateral multifocal pna especially in LLL. He was started on ceftriaxone and azithromycin. On 10/21, afebrile, WBC 5.98. SpO2 100% on RA. At the time of evaluation, he reports having more cough and congestion but overall feeling stable/improved from prior. He has a history of hardware down his entire spine from when he was 14 years old due to spine arthritis. He reports no new issues. He has not required any oxygen. He has been receiving inhalers while inpatient. However, he does feel like he is still having coughing and wheezing. He reports a history of asthma as a child and also an episode of meningitis in his 20s. Allergies Allergy/AdvReac Type Severity Reaction Status Date / Time No Known Allergies Allergy Unverified 10/19/24 17:37 Home Medications Medication Instructions Recorded Confirmed Type atorvastatin 20 mg tablet 20 mg PO HS 10/19/24 10/19/24 History dulaglutide 0.75 mg/0.5 mL 0.75 mg subcut WK 10/19/24 10/19/24 History subcutaneous pen injector (Trulicity) glipizide 10 mg tablet, extended 10 mg PO QAM 10/19/24 10/19/24 History release 24 hr ibuprofen 200 mg tablet 400 mg PO Q6H PRN Pain 10/19/24 10/19/24 History lisinopril 40 mg tablet 40 mg PO QAM 10/19/24 10/19/24 History metformin 500 mg tablet,extended 1,000 mg PO QAM 10/19/24 10/19/24 History release 24 hr multivitamin 1 tab PO QAM 10/19/24 10/19/24 History venlafaxine 150 mg 150 mg PO HS 10/19/24 10/19/24 History capsule,extended release 24 hr Patient History Social History Smoking Status: Never smoker Tobacco Type: Smokeless Tobacco (Dip or Chew) Second Hand Exposure: No; Do You Dip or Chew Tobacco: Yes; Tobacco Cessation Education Requested by Patient: No Hx Alcohol Use: No Hx Substance Use: No Preferred Language: Icelandic Communication Ability: Effective Casing Puller Required: No Beliefs That Will Affect Care: None Current Living Situation: Alone Other Information That Helps Us Care for You: No Feels Safe at Home: Yes Safety Concerns: Feels Safe At This Time Assistive Devices: None Physical Exam Physical Exam: Exam obtained with aid of in-person telepresenter. General: Well-appearing, no acute distress HEENT: Conjunctivae non-injected, sclerae anicteric, MMM, OP clear. Resp: Respirations nonlabored. On room air. Able to speak full sentences clearly Abd: Soft, nontender, nondistended. Back: No tenderness to palpation along spine Ext: No joint warmth or effusions noted. Skin: No rashes or lesions. Neuro: Alert & interactive. Grossly non-focal. Psych: Pleasant, appropriate. Results & Data Vital Signs (Past 12 Hours) Vital Signs Temp Pulse Pulse Resp BP Pulse Ox O2 Del Method 10/21/24 11:00 36.3 C L 81 18 148/84 H 93 Room Air 10/21/24 09:19 70 10/21/24 09:17 Room Air 10/21/24 07:33 81 18 120/77 100 Room Air 10/21/24 07:30 79 18 97 Room Air 10/21/24 04:16 36.6 C 74 20 156/95 H 95 Room Air Diagnostic Findings Diagnostics: 10/20 TTE: no significant valvular abnormalities; EF 60-65% 10/19 CT chest Multifocal bilateral pneumonia, which is pronounced involving the left lower lobe. Follow-up chest CT is recommended in 1 to 2 months to ensure complete resolution. Nonspecific mild mediastinal and hilar lymphadenopathy is likely reactive. Coronary artery calcifications. Micro Data: 10/20 BCx x2: PEND 10/19 BCx x2: Strep pneumoniae in 4 of 4 bottles 10/19 respiratory pathogen panel: + human metapneumovirus Antibiotic Summary: ceftriaxone (10/19 present) azithromycin (10/19 10/21)
[2024-10-21] MEDS: predniSONE 20 MG TAB PO STA (17:43)
[2024-10-21] MEDS: metFORMIN HCL 500 MG TAB PO ONE (17:43)
--- NOTE | 2024-10-21 20:12 | Hospitalist Progress Note ---
Date of Service October 21, 2024 Assessment & Plan (1) Sepsis: Plan: with bacteremia source - pneumonia see below (2) Bacteremia: Plan: 2nd to strep pneumoniae - pansensitive on blood cultures all blood cx's from admission are positive repeat blood cx's negative x 24 hours echo w/o SBE continue rocephin 2gm IV daily while here, then can transition to PO abx therapy at d/c per ID consultation today -- appreciate their input (3) Pneumonia: Plan: CT chest with b/l infiltrates some of the pneumonia could be 2nd human metapneumovirus some of the pneumonia likely 2nd to bacterial superinfection with strep cont rocephin cont azithromycin stable in room air again today clinically improving will need repeat CT in 2-3 months to ensure resolution and to ensure no other occult pathology (4) Hypoxia: Plan: secondary to pneumonia o2 weaned off and stable in RA (5) Hyponatremia: Plan: 2nd hypovolemia from poor PO intake prior to admission presenting Na 122 today's Na - 137 resolved repeat BMP am for stability (6) Hypokalemia: Plan: replaced resolved (7) Hypertension: Plan: stable, controlled cont LORRAINE (8) Type 2 diabetes mellitus: Plan: Typically on metformin, glipizide, Trulicity at home; all on hold Currently on novolog SSI add lantus 10 units daily Hba1c 7.9% Creatinine is stable s/p IV contrast 2 days ago --> resume metformin (9) Pulmonary mass: Plan: CXR on admission showed ill-defined 9 mm retrocardiac masslike opacity CT chest w/o discrete mass --> the CXR finding could be due to the dense EBEN consolidation regardless will need repeat CT in 2-3 months (10) Bronchitis due to human metapneumovirus (hMPV): Plan: extensive wheezing on exam improved s/p addition of formoterol + pulmicort but still with severe cough - very bronchial cough he does report history of asthma as child/teenager cont pulmicort nebs BID cont formoterol BID add prednisone 40mg daily incentive brock flutter valve tessalon robitussin AC prn droplet precautions Plan Chronic stable diagnoses: HLD - continue atorvastatin depression/anxiet - continue venlafaxine DVT proph - Lovenox 40mg Q24h can likely d/c home tomorrow Admission and Anticipated Discharge Date Admission Date: October 19, 2024 Subjective tele overnight wnl eating 100% of meals ambulating no dyspnea with such major complaint is cough has severe "fits" with uncontrollable cough using robitussin ac nebs have helped no new complaints overall feels better Review of Systems Review of Systems: cv - no chest pain pulm - no dyspnea GI - no N/V Physical Exam Physical Exam: gen - lying comfortably in bed, NAD, coughing at times but overall looks good t danitza HENT - congested; MMM neck - no JVD heart - RRR, s1 s2, no murmur lungs - diffuse wheezing MUCH improved today with improved airation all lung segments; no rales; no increased work of breathing abd - soft NT ND BS+ ext - no edema, pulses 2+b/l psych - a/o x 3 Results & Data Results & Data Vital Signs (Past 12 Hours) Vital Signs Temp Pulse Pulse Resp BP Pulse Ox Pulse Ox 10/21/24 18:10 81 18 96 10/21/24 17:48 83 10/21/24 16:30 36.7 C 87 18 155/90 H 95 10/21/24 16:00 95 10/21/24 11:00 36.3 C L 81 18 148/84 H 93 10/21/24 09:19 70 10/21/24 09:17 O2 Del Method O2 Del Method 10/21/24 18:10 Room Air 10/21/24 17:48 10/21/24 16:30 Room Air 10/21/24 16:00 Room Air 10/21/24 11:00 Room Air 10/21/24 09:19 10/21/24 09:17 Room Air Laboratory Results Laboratory Results - last 24 hr 10/20/24 10/21/24 10/21/24 20:31 06:49 07:31 WBC 5.98 RBC 4.55 L Hgb 13.2 L Hct 39.4 L MCV 86.6 MCH 29.0 MCHC 33.5 RDW Std Deviation 40.6 RDW Coeff of Trini 12.8 Plt Count 262 MPV 9.4 Sodium 137 Potassium 4.6 Chloride 101 Carbon Dioxide 30 Anion Gap 6 BUN 15 Creatinine 0.90 Est Cr Clr Drug Dosing 112.5 eGFR 100.24 BUN/Creatinine Ratio 16.7 Glucose 175 H POC Glucose 165 H 185 H Estimat Average Glucose 180 Hemoglobin A1c 7.9 H Calcium 9.1 10/21/24 11:18 WBC RBC Hgb Hct MCV MCH MCHC RDW Std Deviation RDW Coeff of Trini Plt Count MPV Sodium Potassium Chloride Carbon Dioxide Anion Gap BUN Creatinine Est Cr Clr Drug Dosing eGFR BUN/Creatinine Ratio Glucose POC Glucose 202 H Estimat Average Glucose Hemoglobin A1c Calcium Diagnostic Findings Microbiology 10/20/24 14:35 Blood Aerobic Blood Culture - Preliminary No growth in Aerobic bottle after 24 hours. 10/20/24 14:35 Blood Anaerobic Blood Culture - Preliminary No growth in Anaerobic bottle after 24 hours. 10/20/24 14:29 Blood Aerobic Blood Culture - Preliminary No growth in Aerobic bottle after 24 hours. 10/20/24 14:29 Blood Anaerobic Blood Culture - Preliminary No growth in Anaerobic bottle after 24 hours. 10/19/24 15:10 Blood Aerobic Blood Culture - Final Streptococcus pneumoniae 10/19/24 15:10 Blood Anaerobic Blood Culture - Final Streptococcus pneumoniae 10/19/24 14:45 Blood Aerobic Blood Culture - Final Streptococcus pneumoniae 10/19/24 14:45 Blood Anaerobic Blood Culture - Final Streptococcus pneumoniae Echo - no valvular vegetations PG Care Time/CCT Total # of Minutes Spent Total Time Spent with Patient: Total time spent is greater than 50% in coordination of care (as documented) at patient's floor/unit and/or counseling patient: Coding Level of Care Code 56393 SUB INP/OBS CARE MIN Diagnoses Sepsis A41.9 Sepsis acute organ dysfunction status: unspecified Sepsis type: sepsis due to unspecified organism Bacteremia R78.81 Pneumonia J18.9 Hypoxia R09.02 Hyponatremia E87.1 Hypokalemia E87.6 Hypertension I10 Type 2 diabetes mellitus E11.9 Pulmonary mass R91.8 Bronchitis due to human metapneumovirus (hMPV) J40; B97.81 (1) Sepsis Sepsis acute organ dysfunction status: unspecified Sepsis type: sepsis due to unspecified organism Qualified Code(s): A41.9 - Sepsis, unspecified organism
[2024-10-22 07:30] LABS: BUN Creatinine Ratio 17.8 (10-20); Calcium 9.2 mg/dl (8.6-10.3); Creatinine Clr Calc Pharmacy 138.7 ml/min; Potassium 4.5 mmol/L (3.5-5.1)
[2024-10-22] MEDS: predniSONE 10 MG TABLET PO STA (09:08)
[2024-10-22] MEDS: metFORMIN HCL 500 MG TAB PO SCH (09:21)
[2024-10-22 11:37] VITALS: BP 138/93; TEMP 98.2
[2024-10-22] MEDS: ALBUTEROL HFA 8 GM INHALER INH ONE (13:14)
[2024-10-22 13:15] VITALS: PULSE 93; RESP 16; O2SAT 96
--- NOTE | 2024-10-22 13:29 | Discharge Summary ---
Discharge Summary Date of Service October 22, 2024 Principal Dx & Hospital Course #1 = Principal Diagnosis (1) Sepsis: with bacteremia source - pneumonia see below (2) Bacteremia: 2nd to strep pneumoniae - pansensitive on blood cultures all blood cx's from admission are positive repeat blood cx's negative x 24 hours echo w/o SBE continue rocephin 2gm IV daily while here, then can transition to PO abx therapy at d/c per ID consultation today -- appreciate their input (3) Pneumonia: CT chest with b/l infiltrates some of the pneumonia could be 2nd human metapneumovirus some of the pneumonia likely 2nd to bacterial superinfection with strep cont rocephin cont azithromycin stable in room air again today clinically improving will need repeat CT in 2-3 months to ensure resolution and to ensure no other occult pathology (4) Hypoxia: secondary to pneumonia o2 weaned off and stable in RA (5) Hyponatremia: 2nd hypovolemia from poor PO intake prior to admission presenting Na 122 today's Na - 137 resolved repeat BMP am for stability (6) Hypokalemia: replaced resolved (7) Hypertension: stable, controlled cont LORRAINE (8) Type 2 diabetes mellitus: Typically on metformin, glipizide, Trulicity at home; all on hold Currently on novolog SSI add lantus 10 units daily Hba1c 7.9% Creatinine is stable s/p IV contrast 2 days ago --> resume metformin (9) Pulmonary mass: CXR on admission showed ill-defined [address] chest w/o discrete mass --> the CXR finding could be due to the dense EBEN consolidation regardless will need repeat CT in 2-3 months (10) Bronchitis due to human metapneumovirus (hMPV): extensive wheezing on exam improved s/p addition of formoterol + pulmicort but still with severe cough - very bronchial cough he does report history of asthma as child/teenager cont pulmicort nebs BID cont formoterol BID add prednisone 40mg daily incentive brock flutter valve tessalon robitussin AC prn droplet precautions Plan Chronic stable diagnoses: HLD - continue atorvastatin depression/anxiet - continue venlafaxine DVT proph - Lovenox 40mg Q24h can likely d/c home tomorrow Admission HPI Per Admitting Provider Patient is a 54-year-old male with past medical history of hypertension, hyperlipidemia, type 2 diabetes, BPH, depression/anxiety. He presents today with an ongoing cough that has been present for 1.5 weeks, nonproductive. He stated his entire body hurts when he coughs. He also has dyspnea on exertion along with a subjective fever and chills. He had 1 episode of vomiting this morning due to nausea. He has not eaten anything since yesterday just because of generalized weakness and fatigue. He went to, they obtained a CXR which showed LLL pneumonia; he has not started any outpatient antibiotics yet. He presented to the ED today with hypoxia, 98% on room air. He endorses mild dizziness. Endorses chest pain and abdominal pain, relates it to musculoskeletal pain from coughing. Patient denies sputum production, diarrhea, constipation, dysuria, hematuria, edema, numbness, tingling. He has a 10-year history of drinking, no smoking history. He lives at home by himself, support system. He has DNR/DNI status. He took his home medications this morning. Patient reassessed at 1918 - perfusing well, on RA. Fatigued, denies dyspnea. No need for repeat lactate at this time given original was <2. Discharge Exam gen - lying comfortably in bed, NAD, coughing at times but overall looks good today HENT - congested; MMM neck - no JVD heart - RRR, s1 s2, no murmur lungs - diffuse wheezing MUCH improved today with improved airation all lung segments; no rales; no increased work of breathing abd - soft NT ND BS+ ext - no edema, pulses 2+b/l psych - a/o x 3 Discharge Plan Discharge Items Patient Disposition: Home - Self-Care Reason For Visit: SEPSIS, PNEUMONIA Discharge Diagnosis: 1. sepsis / bacteremia due to strep infection 2. strep bacteremia (blood stream infection due to strep) - resolving 3. bilateral pneumonia - resolving 4. human metapneumovirus respiratory infection/bronchitis - resolving 5. diabetes 6. hyponatremia (low sodium) - resolved 7. childhood history of asthma Activity: As commented below Activity Comment: gradually increase activities over the next week Driving/Machine Use: NO DRIVING if using codeine cough syrup Non-emergency contact: Primary Care Provider Call non-emergency contact if: you have any medication questions, your symptoms worsen and you have a fever Follow-up/Referrals: Hanane Soto M.D. [Primary Care Provider] - (within 1 week ) Diet: Carb Consistent or DM2 Addtl Attending Provider Instructions: Mr Banda, You were hospitalized due to respiratory infection as well as low sodium levels in the blood. CT scan of your chest showed bilateral pneumonia, and your respiratory panel was positive for a common virus called "human metapneumovirus" (see handout). Further, you had evidence of blood stream infection - also known as "bacteremia." Your blood cultures were positive for a very common bacterium called "strep pneumoniae." This type of strep infection is one of the most common causes of bacterial pneumonia. Thus, your respiratory infection/pneumonia was likely due to a combination of both human metapneumovirus AND strep. The human metapneumovirus caused a lot of bronchial irritation & wheezing as well which is quite typical for this virus. Unfortunately there is no specific antidote for this virus. You improved with antibiotics, IV fluids, steroids, breathing treatments, and supportive care. Repeat blood cultures are negative which means that the blood stream infection is resolving. Recommendations - 1. for your strep infection in the blood & lungs - * amoxicillin 1000mg three times daily x 7 days, first dose tomorrow morning 10/23/24 * also take azithromycin 250mg x 1 on 10/23/24; this is an additional antibiotic 2. for wheezing/cough/congestion - * prednisone x 7 days, first dose tomorrow morning * know that the prednisone will make your blood sugars higher than typical over the next 7-10 days; be sure to watch your diet carefully during this time * albuterol via plastic spacer device - 2 puffs every 4 hours as needed for cough/wheeze/shortness of breath * Wixela inhaler - 1 puff twice daily x 1 month then stop; rinse your mouth with water & spit out water after each use; just take for 1 month then stop * benzonatate capsules - 100mg every 8 hours as needed for cough * robitussin-AC (codeine based cough syrup) - 5ml every 6 hours as needed for cough * since the syrup has codeine in it please do not drive a car if using this medicine * do not drink alcohol if using the codeine cough syrup 3. continue to use your incentive spirometer and flutter valve for the next few days to help speed along your progress 4. probably by the middle of this week you are no longer contagious to others 5. you should get a repeat CT scan of your chest in about 6-8 weeks; your family doctor can set this up for you. I have included a copy of your current chest CT on a disc for you 6. be sure to rest, focus on good hydration & nutrition, etc over the next few days of your recovery 7. resume your typical diabetes regimen of metformin, glipizide, and Trulicity as previous 8. see your family doctor within 1 week for a recheck 9. as we discussed you might have a lingering cough from this illness for another 1-3 weeks; this is typical especially because of the human metapneumovi loraine Return to [facility] if - * you have fever over 100 degrees * you have worsening shortness of breath * you have chest pains * you develop severe diarrhea * any other concerns It was our pleasure to care for you! Happy Thanksgiving, Dr Thayer Pending Studies at Discharge: Yes Studies:: repeat blood cultures but thus far negative Stand-Alone Forms: My [facility], Work/School Release, Smoking Cessation Medications and DC Order Prescriptions: New azithromycin 250 mg Tablet 250 mg PO QAM 1 Days Qty: 1 0RF Rx Instructions: take on 10/23/24. benzonatate 100 mg Capsule 100 mg PO TID PRN (Reason: cough) Qty: 20 0RF codeine-guaifenesin [Guaifenesin AC] 10-100 mg/5 mL Liquid 5 ml PO Q6H PRN (Reason: cough) Qty: 120 0RF amoxicillin 500 mg tablet 1,000 mg PO TID 7 Days Qty: 42 0RF Rx Instructions: start 10/23/24. prednisone 10 mg tablet 10 mg PO DIRECTED Qty: 12 0RF Rx Instructions: start 10/23, take w/ food. 3 tabs PO QD x 1 day; 2 tabs PO QD x 3 days; 1 tab PO QD x 3 days. fluticasone propion-salmeterol [Wixela Inhub] 250-50 mcg/dose blister with device 1 inh inhalation BID Qty: 60 0RF albuterol sulfate [Ventolin HFA] 90 mcg/actuation HFA aerosol inhaler 2 inh inhalation Q4H PRN (Reason: shortness of breath or wheezing or cough) Qty: 6.7 0RF Rx Instructions: use with spacer device Continued atorvastatin 20 mg tablet 20 mg PO HS glipizide 10 mg tablet extended release 24hr 10 mg PO QAM venlafaxine 150 mg capsule,extended release 24hr 150 mg PO HS lisinopril 40 mg tablet 40 mg PO QAM metformin 500 mg tablet extended release 24 hr 1,000 mg PO QAM Trulicity 0.75 mg/0.5 mL pen injector 0.75 mg SUBCUT WK Rx Instructions: SUNDAYS multivitamin Tablet 1 tab PO QAM ibuprofen 200 mg Tablet 400 mg PO Q6H PRN (Reason: Pain) Discharge Orders: Discharge Order (Routine); Ordered 10/22/24 Ordered By: Nazario Chirinos/Other Patient Handouts: Managing Type 2 Diabetes, Using an Inhaler with a Spacer Admission Data Admit Date/Time: 10/19/24 16:36 Attending Provider: Nazario Thayer Admit Provider: Steve Juarez Primary Care Provider: Hanane Soto Other Providers: Steve Juarez Hospital Stay Data Consultations 10/19/24 15:42 ED Decision to Admit Stat 10/21/24 09:39 Consult Infectious Diseases Routine 10/22/24 12:57 Burn CD for patient Stat Diagnostic Imagining Performed 10/19/24 16:36 CT chest with contrast [CT chest diagnostic w con] Urgent Pending Results Patient Have Any Pending Studies at Discharge: Yes Discharge Instructions Given to Patient (Per Discharging Provider) Mr Banda, Cl were hospitalized due to respiratory infection as well as low sodium levels in the blood. CT scan of your chest showed bilateral pneumonia, and your respiratory panel was positive for a common virus called "human metapneumovirus" (see handout). Further, you had evidence of blood stream infection - also known as "bacteremia." Your blood cultures were positive for a very common bacterium called "strep pneumoniae." This type of strep infection is one of the most common causes of bacterial pneumonia. Thus, your respiratory infection/pneumonia was likely due to a combination of both human metapneumovirus AND strep. The human metapneumovirus caused a lot of bronchial irritation & wheezing as well which is quite typical for this virus. Unfortunately there is no specific antidote for this virus. You improved with antibiotics, IV fluids, steroids, breathing treatments, and supportive care. Repeat blood cultures are negative which means that the blood stream infection is resolving. Recommendations - 1. for your strep infection in the blood & lungs - * amoxicillin 1000mg three times daily x 7 days, first dose tomorrow morning 10/23/24 * also take azithromycin 250mg x 1 on 10/23/24; this is an additional antibiotic 2. for wheezing/cough/congestion - * prednisone x 7 days, first dose tomorrow morning * know that the prednisone will make your blood sugars higher than typical over the next 7-10 days; be sure to watch your diet carefully during this time * albuterol via plastic spacer device - 2 puffs every 4 hours as needed for cough/wheeze/shortness of breath * Wixela inhaler - 1 puff twice daily x 1 month then stop; rinse your mouth with water & spit out water after each use; just take for 1 month then stop * benzonatate capsules - 100mg every 8 hours as needed for cough * robitussin-AC (codeine based cough syrup) - 5ml every 6 hours as needed for cough * since the syrup has codeine in it please do not drive a car if using this medicine * do not drink alcohol if using the codeine cough syrup 3. continue to use your incentive spirometer and flutter valve for the next few days to help speed along your progress 4. probably by the middle of this week you are no longer contagious to others 5. you should get a repeat CT scan of your chest in about 6-8 weeks; your family doctor can set this up for you. I have included a copy of your current chest CT on a disc for you 6. be sure to rest, focus on good hydration & nutrition, etc over the next few days of your recovery 7. resume your typical diabetes regimen of metformin, glipizide, and Trulicity as previous 8. see your family doctor within 1 week for a recheck 9. as we discussed you might have a lingering cough from this illness for another 1-3 weeks; this is typical especially because of the human metapneumovirus Return to [facility] if - * you have fever over 100 degrees * you have worsening shortness of breath * you have chest pains * you develop severe diarrhea * any other concerns It was our pleasure to care for you! Happy Thanksgiving, Dr Thayer Coding Diagnoses Sepsis A41.9 Sepsis acute organ dysfunction status: unspecified Sepsis type: sepsis due to unspecified organism Bacteremia R78.81 Pneumonia J18.9 Hypoxia R09.02 Hyponatremia E87.1 Hypokalemia E87.6 Hypertension I10 Type 2 diabetes mellitus E11.9 Pulmonary mass R91.8 Bronchitis due to human metapneumovirus (hMPV) J40; B97.81
== END 2024-10-22 15:04 | disposition home or self-care (01) | DRG 871 ==
LOC: ED 14:29 → SUATTDRO 16:36 → 2E 16:36